=== PATIENT | male | born 1940 | race Caucasian/White ===

== ENCOUNTER → 2017-12-08 | Outpatient (CLI) | payer OTHER | LOC: FIMAGING 15:22 | PROVIDERS: ATTEND Orthopaedic Surgery | DX: M17.11 Unilateral primary osteoarthritis, right knee (principal); M16.11 Unilateral primary osteoarthritis, right hip; M19.071 Primary osteoarthritis, right ankle and foot ==

== ENCOUNTER 2017-12-31 07:07 | Inpatient (IN) | payer OTHER ==
[~2017-12-31 07:07] MED LIST: ROPIVACAINE 0.2% 80 MG, EPINEPHrine 0.2 MG, KETOROLAC TROMETHAMINE 30 MG in SYRINGE 0 ML IU ONE; TRANEXAMIC ACID 3,000 MG in NS (SYRINGE) 50 ML IRR ONE; TRANEXAMIC ACID 3,000 MG/50 ML BAG IRR ONE; VANCOMYCIN 1 GM VIAL ONE
[2017-12-31] MEDS ORDERED: ACETAMINOPHEN 325 MG TAB PO ONE (07:28)
[2017-12-31] MEDS ORDERED: DEXAMETHASONE 4 MG/ML VIAL IVP ONE (07:28)
[2017-12-31] MEDS ORDERED: FAMOTIDINE 20 MG TAB PO ONE (07:28)
[2017-12-31] MEDS ORDERED: ceFAZolin 2 GM/DEXTROSE 100 ML IV ONE (07:28)
[2017-12-31] MEDS ORDERED: LR 1,000 ML IV ONE (07:30)
--- NOTE | 2017-12-31 08:46 | PDANEPAE ---
ANE History of Present Illness OA here for knee resurfacing ANE Past Medical History - Cardiovascular History Hx Hypertension: Yes Hx Arrhythmias: No Hx Chest Pain: No Hx Coronary Artery / Peripheral Vascular Disease: Yes Hx CHF / Valvular Disease: No Hx Palpitations: No Cardiovascular History Comment: CARDIAC STENT X1 - Pulmonary History Hx COPD: No Hx Asthma/Reactive Airway Disease: No Hx Recent Upper Respiratory Infection: No Hx Oxygen in Use at Home: No Hx Sleep Apnea: Yes Sleep Apnea Screening Result - Last Documented: Positive - Neurologic History Hx Cerebrovascular Accident: No Hx Seizures: No Hx Dementia: No Neurologic History Comment: CONCUSSIONS WHEN PLAYING FOOTBALL IN YOUTH - Endocrine History Hx Diabetes: No - Renal History Hx Renal Disorders: No Renal History Comment: BLADDER TUMOR REMOVED - Liver History Hx Hepatic Disorders: No Hepatic History Comment: HX GALLSTONES - Neurological & Psychiatric Hx Hx Neurological and Psychiatric Disorders: Yes Neurological / Psychiatric History Comment: FLUOXETINE - Cancer History Hx Cancer: Yes Cancer History Comment: BASAL CELL - Congenital Disorder History Hx Congenital Disorders: No - GI History Hx Gastrointestinal Disorders: No Gastrointestinal History Comment: GERD - Other Health History Other Health History: NEG - Chronic Pain History Chronic Pain: Yes - Surgical History Prior Surgeries: ANGIOGRAM W/STENT X1. CATARACTS. 2017 TURP REPEAT. BLADDER TUMOR. TURP. BASAL CELL EAR & FOREARM. R KNEE SCOPE. NASAL SEPTOPLASTY. R TESTICLE REMOVAL. R TIBIA/ANKLE FX. COLONOSCOPIES, EGDs ANE Review of Systems Review of Systems: - Exercise capacity Exercise capacity: >=4 METS METS (RN): 5 METS ANE Patient History - Allergies Allergies/Adverse Reactions: No Known Allergies Allergy (Unverified 11/12/12 08:58) - Home Medications Home Medications: Aspirin [Aspirin 81mg (*)] 81 mg PO DAILY 11/19/17 [Last Taken 12/30/17 07:00] Atorvastatin Calcium [Lipitor 10 mg (*)] 10 mg PO HS 11/19/17 [Last Taken 07:00] Clopidogrel Bisulfate [Clopidogrel] 75 mg PO DAILY 11/19/17 [Last Taken 07:00] FLUoxetine [Prozac 20 MG (*)] 20 mg PO DAILY 11/19/17 [Last Taken 12/30/17 07:00 ] Famotidine [Pepcid 20 MG (*)] 20 mg PO HS 11/19/17 [Last Taken 12/30/17 19:00] Herbals/Supplements -Info Only 1 ea PO DAILY 11/19/17 [Last Taken Unknown] Lisinopril [Zestril 20 mg (*)] 20 mg PO DAILY 11/19/17 [Last Taken 12/30/17 07: 00] Zolpidem Tartrate [Ambien 5MG (*)] 5 mg PO HS PRN 11/19/17 [Last Taken 12/27/17 21:00] CeleBREX 12/31/17 [Last Taken 12/30/17 19:00] - NPO status NPO Status: no food or drink >8 hours NPO Since - Liquids (Date): 12/31/17 NPO Since - Liquids (Time): 04:45 NPO Since - Solids (Date): 12/30/17 NPO Since - Solids (Time): 20:00 - Anes Hx Anes Hx: no prior problems - Smoking Hx Smoking Status: Former smoker - Alcohol Use Alcohol Use: None - Family Anes Hx Family Anes Hx: none Family Hx Anesthesia Complications: NEG ANE Labs/Vital Signs - Vital Signs Blood Pressure: 127/71 Heart Rate: 69 Respiratory Rate: 18 O2 Sat (%): 93 Height: 187.96 cm Weight: 107.955 kg ANE Physical Exam - Airway Neck exam: FROM Mallampati Score: Class 2 Mouth exam: normal dental/mouth exam - Pulmonary Pulmonary: no respiratory distress, clear to auscultation - Cardiovascular Cardiovascular: regular rate and rhythym, no murmur, rub, or gallop - ASA Status ASA Status: III ANE Anesthesia Plan Anesthesia Plan: GA with mask, spinal Regional Anesthesia: single shot NB, adductor canal FNB Total IV Anesthesia: Yes
[2017-12-31] MEDS ORDERED: MIDAZOLAM 2 MG/2 ML VIAL IVP ONE (08:47)
[2017-12-31] MEDS ORDERED: MIDAZOLAM 2 MG/2 ML VIAL ONE (08:48)
[2017-12-31] MEDS ORDERED: PROPOFOL/EMULSION 500 MG/50 ML BOTTLE IV ONE ×2 (08:53→09:40)
[2017-12-31] MEDS ORDERED: ePHEDrine SULFATE 25 MG/5 ML SYR ONE (09:26)
[2017-12-31] MEDS ORDERED: ROPIVACAINE HCL 150 MG/30 ML INJ ONE (09:26)
[2017-12-31] MEDS ORDERED: ACETAMINOPHEN 500 MG TAB PO PRN (10:04)
[2017-12-31] MEDS ORDERED: NALOXONE HCL 0.4 MG/ML INJ IVP PRN (10:04)
[2017-12-31] MEDS ORDERED: HYDROCODONE/APAP 5/325 TAB PO PRN (10:04)
[2017-12-31] MEDS ORDERED: oxyCODONE IR 5 MG TAB PO PRN ×2 (10:04→10:12)
[2017-12-31] MEDS ORDERED: fentaNYL 100 MCG/2 ML INJ IVP PRN (10:04)
[2017-12-31] MEDS ORDERED: ONDANSETRON 4 MG/2 ML VIAL IVP PRN ×2 (10:04→10:12)
[2017-12-31] MEDS ORDERED: PROMETHAZINE HCL 25 MG/ML INJ IVP PRN (10:12)
[2017-12-31] MEDS ORDERED: diphenhydrAMINE 25 MG CAP PO PRN (10:12)
[2017-12-31] MEDS ORDERED: BISACODYL 10 MG SUPP PR PRN (10:12)
[2017-12-31] MEDS ORDERED: MAGNESIUM HYDROXIDE 30 ML UDCUP PO PRN (10:12)
[2017-12-31] MEDS ORDERED: TEMAZEPAM 15 MG CAP PO PRN (10:12)
[2017-12-31] MEDS ORDERED: LACTULOSE 20 GM/30 ML UDCUP PO PRN (10:12)
[2017-12-31] MEDS ORDERED: PROMETHAZINE HCL 25 MG SUPPR PR PRN (10:12)
[2017-12-31] MEDS ORDERED: CYCLOBENZAPRINE 10 MG TAB PO PRN (10:12)
[2017-12-31] MEDS ORDERED: ONDANSETRON DISINTEGRATING 4 MG TAB PO PRN (10:12)
[2017-12-31] MEDS ORDERED: DIPHENOXYLATE/ATROPINE LOMOTIL 1 TAB PO PRN (10:12)
[2017-12-31] MEDS ORDERED: METOCLOPRAMIDE 10 MG/2 ML VIAL IVP PRN (10:12)
[2017-12-31] MEDS ORDERED: POLYETHYLENE GLYCOL 3350 17 GM PKT PO PRN (10:12)
--- NOTE | 2017-12-31 10:12 | POSTOPPROG ---
Post Op Note Date of Operation: 12/31/17 Surgeon: Tiffanie Zarate X Ray Equipment Mechanic: geoff zarate PA-C Anesthesiologist: dr. pierre Anesthesia: Spinal, Other (Specify) (adductor canal block) Pre-op Diagnosis: right knee OA Post-op Diagnosis: same Indication: right knee pain Procedure: R med partial knee arthroplasty robot assisted Findings: severe knee OA Inf/Abcess present in the surg proc area at time of surgery?: No EBL: 50-100
--- NOTE | 2017-12-31 10:14 | POSTANESTH ---
Post Anesthetic Evaluation Cardiovascular Status: Normal, Stable, Similar to Pre-Op Cond Respiratory Status: Normal, Stable, Similar to Pre-op Cond. Level of Consciousness/Mental Status: Can Participate in Eval, Alert and Oriented Pain Control: Adequate, Prn Tx Ordered Nausea/Vomiting Control: Adequate, Prn Tx Ordered Complications Possibly Related to Anesthesia: None Noted
[2017-12-31] MEDS ORDERED: LR 1,000 ML IV SCH (10:30)
--- NOTE | 2017-12-31 15:23 | PDHPUP ---
History & Physical Update H&P update statement: This history and physical update is based on an assessment of the patient which was completed after admission or registration (within 24 hours), but prior to the surgery/procedure. H&P update: H&P reviewed & patient examined, no change in patient's condition since H&P completed
[2017-12-31] MEDS: ACETAMINOPHEN 325 MG TAB PO SCH ×2 (16:28→16:45)
[2017-12-31] MEDS: ceFAZolin 2 GM/DEXTROSE 100 ML IV SCH (16:46)
--- NOTE | 2017-12-31 19:57 | PDMN ---
Medical Necessity Medical necessity: Pt meets inpt criteria per MD order and Musculoskeletal surgery [place], [address] Arthroplasty, knee, condyle and plateau; medial OR lateral compartment. 77 y/o s/p R med partial knee arthroplasty for severe knee OA. Anticipate>2MN due to increased risk for post-op complications due to comorbidities including adv age, overweight, hx alcohol abuse, CAD, stent, on long-term Plavix and aspirin.
[2017-12-31] MEDS ORDERED: ATORVASTATIN CALCIUM 10 MG TAB PO SCH (21:00)
[2017-12-31] MEDS: SENNOSIDES/DOCUSATE SODIUM TAB PO SCH (21:34)
[2017-12-31] MEDS: FAMOTIDINE 20 MG TAB PO SCH (21:34)
[2018-01-01] MEDS: ACETAMINOPHEN 325 MG TAB PO SCH ×2 (00:46→05:37)
[2018-01-01] MEDS: ceFAZolin 2 GM/DEXTROSE 100 ML IV SCH (00:48)
[2018-01-01 07:34] VITALS: BP 105/66
--- NOTE | 2018-01-01 08:36 | SOAPPROG ---
SOAP Progress Note Assessment/Plan: Assessment: Patient is doing well POD 1 s/p R med MPL Pain management: pain is well controlled on oral pain meds. VTE ppx: recommend aspirin 81 mg BID for 4 weeks, cont DA and SCDs Anemia: level is expected initially postop. Asymptomatic. Continue to monitor D/c planning: d/c to home today pending release from PT patient has done better than anticipated. Ok to discharge to home today pending release from PT today. Plan: 01/01/18 08:35 Subjective: patient is doing well, denies pain, denies SOB ,chest pain and N/V Objective: Vital Signs Temp Pulse Resp BP Pulse Ox 36.3 C 60 14 105/66 96 01/01/18 07:33 01/01/18 07:33 01/01/18 07:33 01/01/18 07:33 01/01/18 07:33 Laboratory Results 01/01/18 04:34 12/31/17 01/01/18 01/02/18 05:59 05:59 05:59 Intake Total 2165 Output Total 1830 Balance 335 RLE: incision dressing is clean and dry, NVI, +pf/df ICD10 Worksheet Patient Problems: Problems Problem Status Onset Primary localized osteoarthritis of right knee Acute
[2018-01-01] MEDS: FAMOTIDINE 20 MG TAB PO SCH (08:44)
[2018-01-01] MEDS: SENNOSIDES/DOCUSATE SODIUM TAB PO SCH (08:44)
[2018-01-01] MEDS ORDERED: LISINOPRIL 20 MG TAB PO SCH (09:00)
[2018-01-01] MEDS ORDERED: ASPIRIN 81 MG CHEWABLE TAB PO SCH (09:00)
[2018-01-01] MEDS ORDERED: FLUoxetine 20 MG CAP PO SCH (09:00)
[2018-01-01] MEDS ORDERED: CLOPIDOGREL BISULFATE 75 MG TAB PO SCH (09:00)
--- NOTE | 2018-01-01 09:46 | GDS ---
ADMISSION DIAGNOSIS: Right knee osteoarthritis. DISCHARGE DIAGNOSIS: Right knee osteoarthritis. PROCEDURE: Right partial knee arthroplasty, medial compartment, robot assisted. VTE PROPHYLAXIS: Recommend patient resume his aspirin and Plavix. BRIEF DESCRIPTION OF HOSPITAL STAY: Patient was admitted for an elective joint arthroplasty. The pat ient tolerated the procedure well and has passed physical therapy. The patient was given appropriate antibiotic prophylaxis and venous thromboembolism prophylaxis. The patient's pain was well controlled on oral pain medication, patient was holding down food, and had urinated. Decision was made to disch arge the patient. The patient was given post-operative prescriptions pre-operatively. PLAN: To follow up as scheduled with Dr. Gomez's office January 22 at 11:15 a.m. /[id number]/MODL
--- NOTE | 2018-01-01 10:39 | ASMTLACE ---
LACE Length of stay for Answers: 2 days current admission Acuity / Level of Answers: Yes Care: Did the patient have an inpatient admission? Comorbidities - select Answers: Coronary Artery Disease all that apply Opioid dependence / Chronic pain Other Notes: HTN # of Emergency department Answers: 0 visits in the last 6 months Score: 12 Date Signed: 01/01/2018 10:39 AM Electronically Signed By:SUNNY Garrido
--- NOTE | 2018-01-01 12:31 | GOP ---
DATE OF OPERATION: 12/31/2017 SURGEON: Yves Gomez MD NEUROSURGEON: Yves Gomez MD SALES SYSTEMS ENGINEER: Kristen Gomez PA-C ANESTHESIA: Spinal. PREOPERATIVE DIAGNOSIS: Right knee osteoarthritis. POSTOPERATIVE DIAGNOSIS: Right knee osteoarthritis. PROCEDURE PERFORMED: MELI uni-knee. Right medial compartment partial knee replacement with computer navigation, robotic assist. FINDINGS: ESTIMATED BLOOD LOSS: 30 cc. INDICATIONS: This is a 77 year old male with progressive pain of the right knee unresponsive to cons ervative care. Risks and benefits of surgical intervention were explained in detail. DESCRIPTION OF PROCEDURE: The patient was brought to the operating room and placed on the table in s upine position. Spinal anesthesia was induced without difficulty. A pneumatic tourniquet was applie d about the right proximal thigh and the leg was prepped and draped in sterile fashion. Attention wa s turned first to the distal aspect of the right femur. At 3 cm proximal to the lateral rise of the femur, 2 percutaneous half pins were placed for fixation of the femoral array. In a similar fashion, 2 pins were placed anterolateral on the tibia for fixation of the tibial array. External land karishma ng and registration of the hip center was performed without difficulty. After exsanguination by elevation, the tourniquet was inflated to 250 mmHg. Incision was made from the tibial tuberosity to the superior pole of the patella. Dissection was car ried out through the subcutaneous tissue to the deep fascia using Bovie electrocautery for hemostasis . Medial parapatellar arthrotomy was carried out to the superior pole of the patella. The medial co llateral ligament was elevated and the infrapatellar fat pad was resected. Internal femoral and tibi al registration was carried out without difficulty and the femoral and tibial checkpoints were placed and verified for accuracy. Attention was turned to the femur. The foot print for the size 5 femoral component was cut with the 6 mm bur using the [employer] robotic system and verified for accuracy against the CT based plan. The hole was cut for the femoral post. In a similar fashion, the 6 mm bur was used to cut the foot print for t he size 6 tibial component using the [employer] system and verified for accuracy against the CT based plan. Attention was turned to the posterior aspect of the knee and remnants of the medial meniscus were exc ised. The posterior capsule was injected with ropivacaine, epinephrine and Toradol. Trial reduction was carried out and there was excellent range of motion, alignment and stability using the size 5 fe moral component and the size 6 tibial component, 6 x 8 mm polyethylene. All trials were then removed. The joint was thoroughly irrigated and carefully dried. One package o f cement and 1 gram of vancomycin were mixed in the vacuum mixer and placed on the fixation surfaces of all components. The components were implanted and all excess cement was thoroughly removed. Impla nt placement was verified against the CT view plan and found to be excellent. The tourniquet was deflated and all bleeders were coagulated. The wound was thoroughly irrigated and closed using interrupted sutures of 2-0 Vicryl for the joint capsule. The subcu was closed with 3-0 Vicryl and the skin with 4-0 Monocryl. Dermabond and Steri-Strips were applied, followed by a compr essive dressing. The patient was then moved from the operating room to the recovery room in good con dition, having tolerated the procedure well. PATHOLOGY: Severe medial compartment osteoarthritis. CASE CLASSIFICATION: Clean. /[id number]/MODL
== END 2018-01-01 12:04 | disposition home or self-care (01) | DRG 470 ==
LOC: F3N 07:07 → OBSVTOIN 10:15 → F3N 11:30
PROVIDERS: ADMIT Orthopaedic Surgery; ATTEND Orthopaedic Surgery
PROC: 0SRT0J9 Replacement of Right Knee Joint, Femoral Surface with Synthetic Substitute, Cemented, Open Approach (ICD-10-PCS; principal; 2017-12-31 09:00)
DX: M17.11 Unilateral primary osteoarthritis, right knee (principal); I10 Essential (primary) hypertension; I25.10 Atherosclerotic heart disease of native coronary artery without angina pectoris; G47.30 Sleep apnea, unspecified; Z95.5 Presence of coronary angioplasty implant and graft; Z79.82 Long term (current) use of aspirin; Z79.02 Long term (current) use of antithrombotics/antiplatelets
CPT/HCPCS: 97110-GP; 97116-GP; 97161-GP; C1713; J0171; J0690; J1100; J1885; J2250; J2704; J2795; J3370